=== PATIENT | female | born 1935 | race Caucasian/White ===

== ENCOUNTER → 2016-11-06 | Outpatient (CLI) | payer MEDICARE, BC ==
[~2016-11-06] MED LIST: ACTONEL 5MG TABL5 MG; CALCIUM500 MG PO
== END ==
LOC: MC.RAD 11:18
DX: Z12.31 Encounter for screening mammogram for malignant neoplasm of breast (principal)

== ENCOUNTER → 2017-11-16 | Outpatient (CLI) | payer MEDICARE, BC ==
[~2017-11-16] MED LIST changes: +AMBIEN 10MG10 MG PO; +CALCIUM CARBON650 M2; +CYMBALTA 30MG30 MG PO; +DULCOLAX S10 MG/SUPP RC; +GOOD NEIGH1200 MG/15 PO; +MULTI VITAMINS1 TAB PO; +NORCO 325 MG-51 TAB PO; +PROLIA60 MG/ML SQ; +ROXICODONE 55 MG/TAB PO; +SENOKOT S 50 MG1 TAB PO; +TOPROL XL 25MG25 MG PO; +TYLENOL 325MG325 MG PO; +VITAMIN D3400 I1 PO; +VTAMINC250TA PO; +XARELTO10 MG PO
== END ==
LOC: MC.RAD 11:37
DX: Z12.31 Encounter for screening mammogram for malignant neoplasm of breast (principal)